=== PATIENT | male | born 2000 ===

== ENCOUNTER → 2019-03-31 | Outpatient (CLI) | payer OTHER ==
[2019-03-31 20:29] LABS: CHOL/HDL RATIO 3.2; Cholesterol 154 mg/dL (50-200); HDL Cholesterol 48 mg/dL (>39); Low Density Lipoprotein Chol 97 mg/dL (0-110); Triglycerides 44 mg/dL (30-140); Very Low Density Lipoprot Chol 8 mg/dL (6-28)
[2019-03-31 20:30] LABS: LDL Direct Measurement 92 mg/dL (0-130)
== END | disposition home or self-care (01) ==
LOC: LAB SHORT 19:06 → LAB 19:06 → LAB FUT 03-31 12:15 → EDSTATUS 03-31 12:15
PROVIDERS: Nurse Practitioner Family
DX: Z00.00 Encounter for general adult medical examination without abnormal findings (principal)
CPT/HCPCS: 80061; 83721